=== PATIENT | male | born 1990 | race Caucasian/White ===

== ENCOUNTER 2019-10-12 03:57 | Outpatient (CLI) | payer OTHER | END 2019-10-12 03:58 | disposition critical access hospital (66) | LOC: EMS 03:57 | PROVIDERS: ATTEND Surgery | DX: R56.9 Unspecified convulsions (principal) | CPT/HCPCS: A0425; A0429 ==

== ENCOUNTER 2019-10-12 04:29 | Emergency (ER) | payer OTHER ==
[2019-10-12] MEDS ORDERED: LORazepam 2 MG/ML VIAL IVP STA ×2 (04:45→04:46)
[2019-10-12] MEDS ORDERED: SODIUM CHLORIDE 0.9% 1,000 ML IV STA ×3 (04:45→05:58)
[2019-10-12 05:03] LABS: BASOPHILS # (AUTO) 0.1 10^3/uL (0.0-0.1); BASOPHILS % (AUTO) 0.4 %; EOSINOPHILS # (AUTO) 0.1 10^3/uL (0.0-0.7); EOSINOPHILS % (AUTO) 0.3 %; HGB - HEMOGLOBIN 14.8 g/dL (14.0-18.0); LYMPHOCYTES # (AUTO) 2.3 10^3/uL (1.5-3.5); LYMPHOCYTES % (AUTO) 10.7 %; MEAN CORPUSCULAR HEMOGLOBIN 30.1 pg (27.0-31.0); MEAN CORPUSCULAR HGB CONC 34.6 g/dL (32.0-36.0); MEAN CORPUSCULAR VOLUME 87.2 fL (80.0-94.0); MEAN PLATELET VOLUME 9.1 fL (7.4-11.4); MONOCYTES # (AUTO) 1.5 10^3/uL (0.0-1.0); MONOCYTES % (AUTO) 6.9 %; NEUTROPHILS # (AUTO) 17.2 10^3/uL (1.5-6.6); PLT - PLATELET COUNT 309 10^3/uL (130-450); RED BLOOD COUNT 4.91 10^6/uL (4.70-6.10); RED CELL DISTRIBUTION WIDTH 12.3 % (12.0-15.0); WHITE BLOOD COUNT 21.2 x10^3/uL (4.8-10.8)
[2019-10-12 05:16] LABS: ALBUMIN 4.4 g/dL (3.2-5.5); ALBUMIN/GLOBULIN RATIO 1.7 (1.0-2.2); ALKALINE PHOSPHATASE 72 IU/L (42-121); ALT ALANINE AMINOTRANSFERASE 21 IU/L (10-60); AST ASPARTATE AMINOTRANSFERASE 22 IU/L (10-42); BILIRUBIN,TOTAL 0.7 mg/dL (0.2-1.0); BUN - BLOOD UREA NITROGEN 18 mg/dL (6-20); CALCIUM 8.5 mg/dL (8.5-10.3); CARBON DIOXIDE - CO2 24 mmol/L (21-32); CHLORIDE 99 mmol/L (101-111); GLUCOSE 161 mg/dL (70-100); LIPASE 26 U/L (22-51); SODIUM 137 mmol/L (135-145)
--- NOTE | 2019-10-12 07:15 | ED Physician Documentation ---
History of Present Illness - Stated complaint Stated Complaint: SEIZURE - Chief complaint Chief Complaint: Neuro - History obtained from History obtained from: Patient, Family, EMS - Additonal information Additional information: Patient is brought to the emergency department by EMS after being a grand mal seizure. Patient states that he has been using kratom on a regular basis and that his last use was approximately 24 hours ago.Patient states that yesterday evening he took a Suboxone which he states he has to help him get off the current him. Patient does not remember what happened, but medics state that the parents of the patient heard some sort of commotion in the patient's room and found the patient to be agitated and seemingly delirious. After several minutes of this, the patient seemed to "snap out of it" and he states he remembers seeing his Parents in his room looking worried. The patient states it triggered a panic attack and he is still feeling anxious from it. Medics state that they were called after the parents felt the patient was not coming down. They arrived and found the patient to be mildly anxious but otherwise well-appearing. However, the patient did have an approximately 32nd grand mal seizure in the presence at his home and they decided to transport him. Patient states that he remembers seeing the medics but does not remember the seizure-like activity. Medics state the patient had a short postictal type. Afterward but has been alert and oriented x3 since. He has been cooperative. Patient states he is not been ill with anything recently. No recent head injuries. No other drug use. No alcohol abuse. Patient states he has never had a seizure before. No other complaints at this time. Review of Systems Ten Systems: 10 systems reviewed and negative Constitutional: reports: Reviewed and negative Eyes: reports: Reviewed and negative Ears: reports: Reviewed and negative Nose: reports: Reviewed and negative Throat: reports: Reviewed and negative Cardiac: reports: Reviewed and negative Respiratory: reports: Reviewed and negative GI: reports: Reviewed and negative : reports: Reviewed and negative Skin: reports: Reviewed and negative Musculoskeletal: reports: Reviewed and negative Neurologic: reports: Seizure Psychiatric: reports: Reviewed and negative Endocrine: reports: Reviewed and negative Immunocompromised: reports: Reviewed and negative PD PAST MEDICAL HISTORY - Past Medical History Past Medical History: Yes Cardiovascular: None Respiratory: None Neuro: None Endocrine/Autoimmune: None GI: None : None HEENT: None Psych: Anxiety Musculoskeletal: None Derm: None - Past Surgical History Past Surgical History: No - Allergies Allergies/Adverse Reactions: Allergies Allergy/AdvReac Type Severity Reaction Status Date / Time No Known Drug Allergies Allergy Verified 10/12/19 04:47 - Social History Does the pt smoke?: Yes Smoking Status: Current every day smoker Does the pt drink ETOH?: No Does the pt have substance abuse?: No - Immunizations Immunizations are current?: Yes - POLST Patient has POLST: No PD ED PE NORMAL - Vitals Vital signs reviewed: Yes - General General: Alert and oriented X 3, No acute distress - HEENT HEENT: Atraumatic, PERRL, EOMI, Moist mucous membranes - Neck Neck: Supple, no meningeal sign - Cardiac Cardiac: RRR, No murmur, Strong equal pulses - Respiratory Respiratory: No respiratory distress, Clear bilaterally - Abdomen Abdomen: Soft, Non tender, Non distended - Derm Derm: Normal color, No rash, Other (Moderate diaphoresis) - Extremities Extremities: No deformity, No edema, No calf tenderness / cord (Moderately anxious) - Neuro Neuro: Alert and oriented X 3, 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, No motor deficit, No sensory deficit, Normal speech - Psych Psych: Normal affect, Other Results - Vitals Vitals: Vital Signs - 24 hr 10/12/19 10/12/19 10/12/19 04:33 04:57 05:13 Temperature 37.9 C H Heart Rate 145 H 125 H 117 H Respiratory 18 18 19 Rate Blood Pressure 135/67 H 136/68 H 105/60 O2 Saturation 97 95 97 10/12/19 10/12/19 10/12/19 06:00 07:13 08:17 Temperature 37.1 C Heart Rate 106 H 101 H 99 Respiratory 20 18 10 L Rate Blood Pressure 109/54 L 100/57 L 114/69 O2 Saturation 97 98 99 10/12/19 08:50 Temperature Heart Rate 100 Respiratory 12 Rate Blood Pressure 110/68 O2 Saturation 98 Oxygen O2 Source Room air - Labs Labs: Laboratory Tests 10/12/19 10/12/19 10/12/19 04:50 04:50 07:50 WBC 21.2 H RBC 4.91 Hgb 14.8 Hct 42.8 MCV 87.2 MCH 30.1 MCHC 34.6 RDW 12.3 Plt Count 309 MPV 9.1 Neut # (Auto) 17.2 H Lymph # (Auto) 2.3 [place] # (Auto) 1.5 H Eos # (Auto) 0.1 Baso # (Auto) 0.1 Absolute Nucleated RBC 0.00 Nucleated RBC % 0.0 Sodium 137 Potassium 3.4 L Chloride 99 L Carbon Dioxide 24 Anion Gap 14.0 H BUN 18 Creatinine 1.0 Estimated GFR (MDRD) 89 Glucose 161 H Calcium 8.5 Total Bilirubin 0.7 AST 22 ALT 21 Alkaline Phosphatase 72 Total Protein 7.0 Albumin 4.4 Globulin 2.6 Albumin/Globulin Ratio 1.7 Lipase 26 Urine Opiates Screen NEGATIVE Ur Oxycodone Screen NEGATIVE Urine Methadone Screen NEGATIVE Ur Propoxyphene Screen NEGATIVE Ur Barbiturates Screen NEGATIVE Ur Tricyclics Screen NEGATIVE Ur Phencyclidine Scrn NEGATIVE Ur Amphetamine Screen NEGATIVE U Methamphetamines Scrn NEGATIVE U Benzodiazepines Scrn POSITIVE H Urine Cocaine Screen NEGATIVE U Cannabinoids Screen NEGATIVE Ethyl Alcohol < 5.0 PD MEDICAL DECISION MAKING - ED course Complexity details: reviewed results, re-evaluated patient, considered differential, d/w patient, d/w family ED course: Patient was given 1 L bolus point in normal saline and 80 dose of Ativan 2 mg IV in the emergency department, after which he was found to have significant improvement in his heart rate. He was also found to be sleeping comfortably in bed. The patient did not have any urine output after 1 L of 0.9 normal saline so was given a second. Patient's laboratory studies were unremarkable, other than an elevated white blood cell count. Patient's head CT was also unremarkable. Patient has been signed out to oncoming emergency physician at change of shift, pending production of urine and final disposition. He has been without seizure activity or other complaints throughout his stay in the emergency department. Departure - Departure Disposition: 01 Home, Self Care Clinical Impression: Seizure, Drug abuse Condition: Good Instructions: ED Seizure New Onset Unk Cause Follow-Up: Your,doctor in 1 week [Other] Comments: Follow-up with your doctor within the next week for repeat evaluation. They may want to perform an MRI of your brain and an EEG. It is likely that the seizures were caused by the Kratom and Suboxone. Return if you worsen. Do not drive or operate heavy machinery until cleared by your doctor. Also stay away from swimming pools and baths. Showers are okay. Discharge Date/Time: 10/12/19 09:15
[2019-10-12 08:08] LABS: MUDS CUTOFF CONCENTRATIONS CUTOFF CONC BELOW:
[2019-10-12 08:25] LABS: COCAINE SCREEN URINE NEGATIVE (NEGATIVE); METHAMPHETAMINES SCREEN, URINE NEGATIVE (NEGATIVE); OPIATE SCREEN, URINE NEGATIVE (NEGATIVE)
[2019-10-12 08:26] LABS: AMPHETAMINE SCREEN,URINE NEGATIVE (NEGATIVE); BENZODIAZEPINES SCREEN, URINE POSITIVE (NEGATIVE); METHADONE SCREEN, URINE NEGATIVE (NEGATIVE); OXYCODONE SCREEN, URINE NEGATIVE (NEGATIVE); PROPOXYPHENE SCREEN, URINE NEGATIVE (NEGATIVE); TRICYCLIC ANTIDEPRESSANT,URINE NEGATIVE (NEGATIVE)
--- NOTE | 2019-10-12 08:33 | ED Physician Documentation ---
ED Addendum - Addendum Addendum: 10/12/19 08:31 Patient was signed out to me awaiting urine tox screen. If the tox screen was negative, the patient would be stable for discharge. The patient has no complaints currently in the emergency department. He states that he feels well. He would like to go home at this time. Counseled regarding the use of kratom and Suboxone and the potential for seizures. Recommend that he no longer use these medications and substances. Likely that the seizure was from the substance abuse. Patient counseled regarding signs and symptoms for which I believe and urgent re-evaluation would be necessary. Patient with good understanding of and agreement to plan and is comfortable going home at this time This document was made in part using voice recognition software. While efforts are made to proofread this document, sound alike and grammatical errors may occur. Leukocytosis likely secondary to demarginalization from the seizure. Departure - Departure Disposition: 01 Home, Self Care Clinical Impression: Seizure, Drug abuse Condition: Good Instructions: ED Seizure New Onset Unk Cause Follow-Up: Your,doctor in 1 week [Other] Comments: Follow-up with your doctor within the next week for repeat evaluation. They may want to perform an MRI of your brain and an EEG. It is likely that the seizures were caused by the Kratom and Suboxone. Return if you worsen. Do not drive or operate heavy machinery until cleared by your doctor. Also stay away from swimming pools and baths. Showers are okay.
[2019-10-12 08:51] VITALS: BP 110/68
--- NOTE | 2019-10-12 09:34 | CT Report ---
PROCEDURE: HEAD WO INDICATIONS: new-onset sz TECHNIQUE: Noncontrast 4.5 mm thick angled axial sections acquired from the foramen magnum to the vertex. For r adiation dose reduction, the following was used: automated exposure control, adjustment of mA and/or kV according to patient size. COMPARISON: None. FINDINGS: Image quality: Excellent. CSF spaces: Basal cisterns are patent. No extra-axial fluid collections. Ventricles are normal in size and shape. Brain: No midline shift. No intracranial masses or hemorrhage. Neri-white matter interface is norm al. Skull and face: Calvarium and visualized facial bones are intact, without suspicious lesions. Sinuses: Visualized sinuses and mastoids are clear. IMPRESSION: 1. No acute intracranial process. The above findings are concordant with preliminary report. Reviewed by: Martha Banks MD on 10/12/2019 9:32 AM PDT Approved by: Martha Banks MD on 10/12/2019 9:32 AM PDT Station ID: [id number]
== END 2019-10-12 09:15 | disposition home or self-care (01) ==
LOC: EDUNIT# → ED 04:29
DX: R56.9 Unspecified convulsions (principal); F11.10 Opioid abuse, uncomplicated; F55.1 Abuse of herbal or folk remedies; F41.9 Anxiety disorder, unspecified; R00.0 Tachycardia, unspecified; D72.829 Elevated white blood cell count, unspecified; F17.200 Nicotine dependence, unspecified, uncomplicated
CPT/HCPCS: 36415; 70450; 80053; 80306; 80320; 83690; 85025; 93005; 96361; 96374; 99284; J2060